=== PATIENT | male | born 1935 | race Caucasian/White ===

== ENCOUNTER 2023-09-13 12:24 | Emergency (ER) | payer OTHER, SELFPAY ==
[2023-09-13 12:29] VITALS: BP 126/68
[2023-09-13 12:31] VITALS: BP 126/68
[2023-09-13 13:00] VITALS: BP 111/72
--- NOTE | 2023-09-13 13:51 | ED.GENMED ---
History of Present Illness
General
Chief Complaint: Skin Problem
Source: patient, records and spouse
Exam Limitations: clinical condition
Time Seen by Provider: 09/13/23 13:38
Nursing documentation reviewed up to this point in time: agreed with
Travel History
Have you had any contact with someone who has COVID-19?: No
Do you have any symptoms of coronavirus? Fever > 100 degrees, chills, cough, shortness of breath, sore throat, loss of taste or smell, muscle aches, or headache?: No
History of Present Illness
History of Present Illness:
88-year-old male presents emergency department due to no detectable pulse palpated in the right foot. Unclear onset. He also has swelling in his right foot.
Past History
Past History
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
ED Past Surgical History: Other (Hernia repair)
Social History
Tobacco: Non-smoker
Alcohol: None
Drug: None
Personal:
Living: with family
Review of Systems
Review of Systems
Allergies reviewed?: Yes
All Other Systems: Not applicable
Constitutional: Reports no symptoms
EENT: Reports no symptoms
Respiratory: Reports no symptoms
Cardiac: Reports no symptoms
ABD/GI: Reports no symptoms
: Reports no symptoms
Musculoskeletal: Reports edema
Skin: Reports no symptoms
Neurological: Reports no symptoms
Endocrine: Reports no symptoms
Hematologic/Lymphatic: Reports no symptoms
Psychiatric: Reports no symptoms
Phy Exam
Physical Exam
Physical Exam:
Physical Exam
General: no apparent distress, not acutely ill
Neck: supple. no meningeal signs. normal posterior pharynx
Heart: s1/s2 regular rate and rhythm, no murmur. equal radial
pulses.
HEENT: Pupils equal round reactive to light, EOMI
Lungs: no acute respiratory distress. clear bilaterally
Abdomen: normal bowel sounds. not tender. no CVAT
Neuro: alert and oriented. no focal neurological deficits cranial nerves II through XII intact
Skin: no rash
Psychiatric: well kept. interactive and cooperative
Extremities: Right leg edema. no calf tenderness. negative homans. good dorsalis pedis pulses on left foot palpable, on right by Doppler
Course
Orders/Labs/Results
Orders:
Orders
09/13/23 13:49
US Periph Venous LOWER Ext RT Urgent
Comment:
Reason For Exam: right leg swelling
Vital Signs
Initial and Last Documented VS:
Initial Vital Signs
BP
126/68
09/13/23 12:29
Last Documented Vital Signs
Temp Pulse Resp BP Pulse Ox
98.7 F 58 21 126/68 93
09/13/23 12:31 09/13/23 12:31 09/13/23 12:31 09/13/23 12:31 09/13/23 12:31
MDM/Problems Addressed
Differential Diagnosis Includes:
Arterial occlusion, DVT
MDM/Problems Addressed:
88-year-old male with concerns for arterial occlusion. None found. Pulse easily found with Doppler. Swelling in right lower leg, no signs of cellulitis or DVT. Stable for discharge.
Chronic conditions affecting care: CAD and Other (Prior CVA)
Acute Exacerbation and/or Progression of Chronic Illness: CAD and Other (Prior CVA)
*Radiology
Radiology exam reviewed: radiology read reviewed (Ultrasound no signs of DVT)
*Pulse Oximetry
Patient hypoxic: no
*EKG
Interpreted by ED Provider?: NA
*Manual Qa Tester Interpretation
Rate: Manual Qa Tester- N/A
*Critical Care Note
Total Time (30-74mins, 75-104mins- exclusive of procedures): Not Applicable
Data Reviewed
Further Testing Considered But Not Given:
Arterial ultrasound not indicated at this time
Patient Management
Social determinants of health affecting care: Living situation
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 Don Negron, vascular surgeon, who recommends outpatient follow-up, no further test)
Escalation/DeEscalation of care consider admission/obs:
Admit not indicated
ED Attending Note
-
Portions of this chart may have been created with voice recognition software.� Occasional wrong word or��sound alike� substitutions may have occurred due to the inherent limitations of voice recognition software.
Discharge Plan
Departure
Patient Disposition: Care Home/SNF
Date of Disposition: 09/13/23
Time of Disposition: 15:32
Patient with high blood pressure during this ER visit?: Yes
Condition: Good
Discharge Problem:
Edema of right lower leg
Instructions: Swelling, BLOOD PRESSURE
Prescriptions:
No Action
acetaminophen [Tylenol] 325 mg Tablet
650 mg PO Q4HPRN PRN (Reason: mild pain)
magnesium hydroxide [Milk of Magnesia] 400 mg/5 mL Suspension
2,400 mg PO HSPRN PRN (Reason: constipation)
bisacodyl [Dulcolax (bisacodyl)] 10 mg Suppository
10 mg MI [id number] PRN (Reason: if no bm aftr mom)
tamsulosin 0.4 mg capsule
0.4 mg PO HS
rosuvastatin 40 mg tablet
40 mg PO HS Qty: 30 0RF
metoprolol tartrate 25 mg Tablet
12.5 mg PO BID Qty: 60 0RF
Eliquis 5 mg Tablet
5 mg PO BID Qty: 60 0RF
dextromethorphan-guaifenesin 10-100 mg/5 mL Syrup
10 ml PO Q6HPRN PRN (Reason: cough)
Referrals:
Don Negron III, MD [Active] - Call in 1-3 days for appt
Alistair Galdamez DO [Family Provider] - Call in 1-3 days for appt
Interventions
Interventions:
*Risk Screen - Suicide Last Done: 09/13/23 12:31
*General Assessment Last Done: 09/13/23 12:31
*Neglect/Abuse Screening Last Done: 09/13/23 12:31
ED- Fall Risk Assessment Last Done: 09/13/23 12:39
*ED COVID-19 Vaccine History Last Done: 09/13/23 12:31
ED-Skin Assessment Last Done: 09/13/23 12:39
Discharge Date and Time
Print Language: [place]
[2023-09-13 14:00] VITALS: BP 116/64
== END 2023-09-13 19:10 ==
LOC: EMR 12:24
PROVIDERS: EMERGENCY PHYSICIAN Emergency Medicine; FAMILY PHYSICIAN Student in an Organized Health Care Education/Training Program; OTHER PHYSICIAN Family Medicine
DX: R60.9 Edema, unspecified (principal); R03.0 Elevated blood-pressure reading, without diagnosis of hypertension
CPT/HCPCS: 99284; 93971

== ENCOUNTER → 2023-10-08 08:35 | Outpatient (REF) | payer OTHER, SELFPAY | LOC: RAD 08:35 | PROVIDERS: ATTENDING PHYSICIAN Surgery Vascular Surgery; FAMILY PHYSICIAN Family Medicine | DX: I73.9 Peripheral vascular disease, unspecified (principal) | CPT/HCPCS: 93922; 93925 ==